=== PATIENT | male | born 1955 | race African-American/Black ===

== ENCOUNTER 2017-10-08 16:35 | Emergency (ER) | payer OTHER ==
[2017-10-08] MEDS ORDERED: Haloperidol Lactate 5 MG/ML VIAL ONE (17:01)
[2017-10-08 17:05] LABS: #Basophils 0.1 thou/uL (0.0-0.2); #Eosinphils 0.1 thou/uL (0.0-0.7); #Lymphocytes 2.1 thou/uL (1.20-3.40); #Monocytes 0.8 thou/uL (0.11-0.59); #Neutrophils 4.9 thou/uL (1.40-6.50); %Eosinophils 1.5 % (0.0-10.0); %Lymphocytes 25.9 % (21.0-51.0); %Monocytes 10.3 % (0.0-10.0); %Neutrophils 61.3 % (42.0-75.0); Bilirubin Moderate (Negative); Blood, Urine Small (Negative); Clarity Clear (Clear); Glucose, Urine (Dipstick) Negative (Negative); Leukocyte Negative (Negative); Mean Corpuscular HGB CONC 35.5 g/dL (32.0-36.0); Mean Corpuscular Hemoglobin 31.6 pg (27.0-31.0); Mean Corpuscular Volume 89.2 fl (80.0-94.0); Mean Platelet Volume 8.8 fL (7.4-10.4); Nitrite Negative (Negative); Platelet Count 223 thou/uL (130-400); Protein, Urine (Dipstick) 100 mg/dL (Neg-Trace); RBC Distribution Width 12.6 % (11.5-14.5); Red Blood Cell (RBC) Count 5.04 mill/uL (4.70-6.10); White Blood Cell (WBC) Count 8.1 thou/uL (4.8-10.8); pH, Urine 5.5 (5.0-9.0)
[2017-10-08 17:10] LABS: Specific Gravity, Urine 1.028 (1.002-1.036)
[2017-10-08 17:13] LABS: Amphetamine Not Detected (NotDetected); Barbiturates Screen Not Detected (NotDetected); Benzodiazepine Screen Not Detected (NotDetected); Cocaine Metabolite Screen Detected (NotDetected); Medtox Control Line Valid? VALID (VALID); Methadone Not Detected (NotDetected); Methamphetamine Not Detected (NotDetected); Opiate Screen Not Detected (NotDetected); Oxycodone Screen Not Detected (NotDetected); Phencyclidine (PCP) Not Detected (NotDetected); THC/Cannabinoid Screen Not Detected (NotDetected); Tricyclic Screen Not Detected (NotDetected)
[2017-10-08 17:16] LABS: Bacteria/HPF Rare-Few HPF (None Seen); Crystals/HPF None Seen HPF (Negative); Hyaline Casts/LPF NONE SEEN LPF (0-3 Hyaline); Other Casts/LPF None Seen LPF (0-3 Hyaline); Oval Fat Bodies/HPF None Seen HPF (None Seen); RBC/HPF 0-3 HPF (0-3); Renal Epithelial None Seen HPF (0-3); Sperm/HPF None Seen HPF (None Seen); Squamous Epithelial None Seen HPF (0-3); Transitional Epithelial NONE SEEN HPF (0-3); Trichomonas/HPF None Seen HPF (None Seen); WBC/HPF None Seen HPF (0-3); Yeast-All Forms None Seen HPF (None Seen)
[2017-10-08 17:21] LABS: ALT (SGPT) 15 U/L (8-55); AST (SGOT) 24 U/L (5-34); Albumin 4.3 g/dL (3.5-5.0); Alkaline Phosphatase 81 U/L (40-150); Anion Gap 19 mmol/L (10-20); BUN (Urea Nitrogen) 18 mg/dL (8.4-25.7); Bilirubin, Total 0.9 mg/dL (0.2-1.2); CK (CPK) 382 U/L (30-200); Calc. Creatinine Clearance 0 mL/min (70-130); Calcium 9.7 mg/dL (7.8-10.44); Carbon Dioxide 21 mmol/L (22-29); Chloride 103 mmol/L (98-107); Estimated GFR-MDRD 50; Glucose 101 mg/dL (70-105); Lipase 32 U/L (8-78); Potassium 4.2 mmol/L (3.5-5.1); Protein, Total 8.3 g/dL (6.0-8.3); Sodium 139 mmol/L (136-145)
[2017-10-08 17:25] LABS: CKMB 2.6 ng/mL (0-6.6); Troponin I 0.043 ng/mL (< 0.028)
[2017-10-08 18:44] LABS: Acetaminophen Less than 6.0 mcg/mL (10.0-30.0); Alcohol Less than 10 mg/dL (Less than 10); Salicylate Less than 8.0 mg/dL (15.0-30.0)
--- NOTE | 2017-10-08 19:10 | CT ---
CT HEAD WITHOUT CONTRAST: History: Mental status change. Technique: Multiple tomograms were obtained through the head without IV enhancement. Comparison: None. FINDINGS: Ventricles have normal size and position. There are moderately severe chronic ischemic white matter changes. The degree of white matter abnorma lity is concerning for this patient's age. Suggest elective MRI to better characterize these changes. No hemorrhage or mass or edema seen. No acute infarct identified. IMPRESSION: Moderate to severe white matter abnormalities which may represent chronic ischemic change. Suggest e lective MRI to better characterize these findings. POS: [facility]
--- NOTE | 2017-10-08 19:39 | CT ---
CT ABDOMEN AND PELVIS WITHOUT IV CONTRAST: Technique: Multiple axial tomograms through the abdomen and pelvis without IV enhancement. History: Right flank pain. FINDINGS: The lung bases appear clear. The liver, spleen, and pancreas appear unremarkable. Adrenal glands are normal. Review of the kidneys shows no evidence of hydronephrosis. No evidence of urinary tract calcification . The ureters are normal. There is no hydronephrosis. There is a 2.5 cm low density lesion in the rig ht lateral renal cortex suggesting a small cyst. There is a protuberance from the anterior mid left renal cortex which may be asymmetric cortex. A gracia or cannot be completely excluded although the density appears homogeneous with cortex. Suggest a foll ow up renal ultrasound to confirm cyst in the right kidney and rule out solid lesion in the left kidn ey. Small bowel loops appear normal. Appendix appears normal other than there is a small calcification in the proximal appendix suggesting a small appendicolith. Aorta is normal caliber. No adenopathy is se en. IMPRESSION: 1. No evidence of urinary tract calculus or obstruction. 2. A low density lesion in the right kidney, probably cyst. An asymmetric protuberance from the anter ior left renal cortex. Suggest a follow up renal ultrasound to evaluate both kidneys. POS: [facility]
== END 2017-10-08 19:38 | disposition short-term general hospital (02) ==
LOC: BURERS 16:35
DX: I63.9 Cerebral infarction, unspecified (principal); E11.9 Type 2 diabetes mellitus without complications; I10 Essential (primary) hypertension; F31.9 Bipolar disorder, unspecified; F20.9 Schizophrenia, unspecified
CPT/HCPCS: 36416; 70450; 74176; 80053; 80306; 80307; 81003; 81015; 82553; 83605; 83690; 84484; 85025; 93005; 96361; 96374; J1630

== ENCOUNTER 2018-02-10 17:03 | Emergency (ER) | payer OTHER ==
[2018-02-10] MEDS ORDERED: Metoclopramide HCl 10 MG/2 ML VIAL ONE (17:21)
[2018-02-10 17:53] LABS: ALT (SGPT) 23 U/L (8-55); AST (SGOT) 26 U/L (5-34); Albumin 4.2 g/dL (3.5-5.0); Alkaline Phosphatase 71 U/L (40-150); Anion Gap 16 mmol/L (10-20); BUN (Urea Nitrogen) 70 mg/dL (8.4-25.7); Bilirubin, Total 0.8 mg/dL (0.2-1.2); Calc. Creatinine Clearance 0 mL/min (70-130); Calcium 9.1 mg/dL (7.8-10.44); Carbon Dioxide 22 mmol/L (22-29); Chloride 100 mmol/L (98-107); Estimated GFR-MDRD 21; Globulin 3.7 g/dL (2.4-3.5); Glucose 98 mg/dL (70-105); Lipase 85 U/L (8-78); Potassium 3.9 mmol/L (3.5-5.1); Protein, Total 7.9 g/dL (6.0-8.3); Sodium 134 mmol/L (136-145); Troponin I 0.025 ng/mL (< 0.028)
[2018-02-10 17:56] LABS: Hemoglobin 15.2 g/dL (14.0-18.0); Lymphocytes 25 % (21-51); MDiff Complete? YES; Mean Corpuscular HGB CONC 36.4 g/dL (32.0-36.0); Mean Corpuscular Hemoglobin 29.7 pg (27.0-31.0); Mean Corpuscular Volume 81.6 fL (78.0-98.0); Mean Platelet Volume 6.1 fL (7.4-10.4); Monocytes 17 % (0-10); Neutrophil 58 % (42-75); Platelet Count 237 thou/uL (130-400); RBC Distribution Width 11.9 % (11.5-14.5); Red Blood Cell (RBC) Count 5.13 mill/uL (4.70-6.10); Small Platelets SLIGHT; White Blood Cell (WBC) Count 6.8 thou/uL (4.8-10.8)
--- NOTE | 2018-02-10 20:46 | CT ---
CT ABDOMEN AND PELVIS WITHOUT CONTRAST: 02/10/2018 COMPARISON: 10/08/2017 TECHNIQUE: This exam was done without oral or IV contrast. Axial images were obtained initially, and then coron al and sagittal reconstructions were done afterwards. FINDINGS: ABDOMEN: There has been little or no change in the appearance of the abdomen and pelvis since the arch examination. There are no acute findings of concern to explain the patient's nausea and vomitin g. The lung bases are clear. The liver, spleen, pancreas, gallbladder, adrenal glands, kidneys, and abd ominal aorta show no acute findings within the limitations of the noncontrast study. As before, ther e is a 2.5 cm rounded lucency in the middle third of the right kidney that is almost certainly a teo l cyst. Ultrasound would be needed for complete confirmation. It has not changed in size or appeara nce in the interval. The bowel is nondistended with no sign of obstruction or inflammatory change around the bowel. There is a tiny calcification in the appendix, which was present before. There is no sign of appendicitis , however. PELVIS: No pelvic masses, fluid collections, or inflammatory changes. Fat filled inguinal hernias a re present bilaterally, bigger on the left than the right. Finally, degenerative changes are seen in the lumbar spine, particularly at the L3-L4 level. IMPRESSION: No acute abdominal or pelvic findings. No adverse change since the 10/08/2017 scan. POS: [facility]
--- NOTE | 2018-02-10 20:48 | RAD ---
AP PORTABLE CHEST: 02/10/2018 1743 HOURS COMPARISON: None. FINDINGS: The heart is normal in size for body habitus and projection. There is no vascular congestion, edema, or pleural effusion. The lungs are clear. The trachea is midline. IMPRESSION: No acute thoracic findings. POS: HOME
== END 2018-02-10 19:27 | disposition short-term general hospital (02) ==
LOC: BURERS 17:03
DX: N17.9 Acute kidney failure, unspecified (principal); E86.0 Dehydration; E11.9 Type 2 diabetes mellitus without complications; I10 Essential (primary) hypertension; R94.31 Abnormal electrocardiogram [ECG] [EKG]; F31.9 Bipolar disorder, unspecified; Z79.84 Long term (current) use of oral hypoglycemic drugs; Z79.82 Long term (current) use of aspirin; Z79.899 Other long term (current) drug therapy; Z86.73 Personal history of transient ischemic attack (TIA), and cerebral infarction without residual deficits
CPT/HCPCS: 71045; 74176; 80053; 82550; 83690; 84484; 85025; 93005; 96361; 96374; J2765

== ENCOUNTER 2022-03-03 13:01 | Emergency (ER) | payer OTHER ==
[2022-03-03] MEDS ORDERED: Morphine 4 MG/ML VIAL ONE (13:22)
[2022-03-03 13:33] LABS: #Basophils 0.1 thou/uL (0.0-0.2); #Eosinphils 0.1 thou/uL (0.0-0.7); #Lymphocytes 2.3 thou/uL (1.20-3.40); #Monocytes 0.9 thou/uL (0.11-0.59); #Neutrophils 6.9 thou/uL (1.40-6.50); %Basophils 1.1 % (0.0-1.0); %Eosinophils 0.8 % (0.0-10.0); %Lymphocytes 22.3 % (21.0-51.0); %Monocytes 8.8 % (0.0-10.0); Hemoglobin 14.8 g/dL (14.0-18.0); Mean Corpuscular HGB CONC 33.3 g/dL (32.0-36.0); Mean Corpuscular Hemoglobin 30.7 pg (27.0-31.0); Mean Corpuscular Volume 92.2 fL (78.0-98.0); Mean Platelet Volume 6.9 fL (7.4-10.4); Platelet Count 194 thou/uL (130-400); RBC Distribution Width 12.9 % (11.5-14.5); Red Blood Cell (RBC) Count 4.82 mill/uL (4.70-6.10); White Blood Cell (WBC) Count 10.3 thou/uL (4.8-10.8)
[2022-03-03 13:45] LABS: INR-International Normal Ratio 1.1; Prothrombin Time 13.9 sec (12.0-14.7)
[2022-03-03 13:49] LABS: ALT (SGPT) 17 U/L (8-55); AST (SGOT) 24 U/L (5-34); Albumin 4.2 g/dL (3.4-4.8); Alkaline Phosphatase 58 U/L (40-110); Anion Gap 14 mmol/L (10-20); BUN (Urea Nitrogen) 28 mg/dL (8.4-25.7); Bilirubin, Total 0.8 mg/dL (0.2-1.2); Calc. Creatinine Clearance 0 mL/min (70-130); Calcium 9.4 mg/dL (7.8-10.44); Carbon Dioxide 22 mmol/L (23-31); Chloride 108 mmol/L (98-107); Estimated GFR 32; Globulin 3.6 g/dL (2.4-3.5); Glucose 116 mg/dL (80-115); Potassium 4.1 mmol/L (3.5-5.1); Protein, Total 7.8 g/dL (5.8-8.1); Sodium 140 mmol/L (136-145)
[2022-03-03 14:01] LABS: Bilirubin Small (Negative); Blood, Urine Trace (Negative); Clarity Clear (Clear); Glucose, Urine (Dipstick) Negative (Negative); Ketone, Urine Negative (Negative); Leukocyte Negative (Negative); Nitrite Negative (Negative); Protein, Urine (Dipstick) 30 mg/dL (Neg-Trace); Specific Gravity, Urine 1.025 (1.005-1.030); pH, Urine 5.5 (5.0-9.0)
[2022-03-03 14:14] LABS: RBC/HPF 0-3 HPF (0-3)
[2022-03-03 14:15] LABS: Squamous Epithelial None Seen HPF (0-3); WBC/HPF 0-3 HPF (0-3)
== END 2022-03-03 18:08 | disposition home or self-care (01) ==
LOC: BURERS 13:01
DX: S20.212A Contusion of left front wall of thorax, initial encounter (principal); S60.222A Contusion of left hand, initial encounter; N28.9 Disorder of kidney and ureter, unspecified; I10 Essential (primary) hypertension; E11.9 Type 2 diabetes mellitus without complications; Z86.73 Personal history of transient ischemic attack (TIA), and cerebral infarction without residual deficits; W01.0XXA Fall on same level from slipping, tripping and stumbling without subsequent striking against object, initial encounter
CPT/HCPCS: 36415; 71250; 80053; 81003; 81015; 85025; 85610; 96372; J2270